=== PATIENT | male | born 1950 | race Caucasian/White ===

== ENCOUNTER 2018-08-04 14:02 | Emergency (ER) | payer OTHER ==
--- NOTE | 2018-08-04 14:56 | RAD REPORT ---
EXAM DESCRIPTION: CT - Head Brain Wo Cont - 08/04/2018 2:48 pm CLINICAL HISTORY: Hypertension, dizziness, weakness COMPARISON: None. TECHNIQUE: Axial 5 mm thick images of the head were obtained without IV contrast. All CT scans are performed using dose optimization technique as appropriate and may include automated exposure control or mA/KV adjustment according to patient size. FINDINGS: No intracranial hemorrhage, mass, edema or shift of mid-line structures. No acute infarcti on changes seen. Mild atrophy and chronic ischemic changes are present. Ventricles are in proportion to the volume loss. Mastoid air cells are clear. No significant paranasal sinus finding. No acute bony findings. IMPRESSION: Negative non-contrast CT head examination for acute finding. Mild atrophy and chronic ischemic change.
[2018-08-04 15:05] LABS: Protime INR 0.92
[2018-08-04 15:15] LABS: Absolute Lymphocytes (CBC) 1.1 K/uL (0.7-4.9); Absolute Monocytes 0.5 K/uL (0.1-1.3); Absolute Neutrophil 4.5 K/uL (1.8-8.0); Basophils % 1.7 % (0-1.3); Eosinophils % 4.9 % (0-4.4); Hematocrit 47.6 % (39.6-49.0); MCH 31.5 pg (27.0-35.0); MCV 91.2 fL (80-100); MPV 8.4 fL (7.6-11.3); Monocytes % 7.9 % (3.3-12.3); RBC Red Blood Cell Count 5.22 M/uL (4.33-5.43)
[2018-08-04 15:16] LABS: Albumin 4.1 g/dL (3.4-5.0); Bilirubin Direct 0.1 mg/dL (0-0.2); Bilirubin Total 0.5 mg/dL (0.2-1.0); Magnesium 2.5 mg/dL (1.8-2.4); Potassium 3.8 mmol/L (3.5-5.1); Protein, Total 7.9 g/dL (6.4-8.2); Troponin (Emerg Dept Use Only) 0.02 ng/mL (0.0-0.045)
--- NOTE | 2018-08-04 15:35 | RAD REPORT ---
EXAM DESCRIPTION: RAD - Chest Single View - 08/04/2018 3:06 pm CLINICAL HISTORY: Chest pain COMPARISON: July 2012 TECHNIQUE: AP portable chest image was obtained 1500 hours . FINDINGS: Lungs are clear. Lung markings are similar to comparison. Heart and vasculature are normal . No measurable pleural effusion and no pneumothorax. No acute bony abnormality seen. No acute aortic findings suspected. IMPRESSION: No acute cardiopulmonary process. No significant interval change.
--- NOTE | 2018-08-04 15:52 | EDPHYS ---
Physician Documentation [facility] Name: Dalton Garsia Age: 67 yrs Sex: Male : 1950 Arrival Date: 08/04/2018 Time: 14:06 Bed 18 Private MD: ANSELMO LUCAS ED Physician Lee Burton HPI: 08/04 15:13 This 67 yrs old Male presents to ER via Ambulatory with complaints of Blood kb Pressure Problem. 15:13 The patient has elevated blood pressure and discovered this at home, with a home kb device. Onset: The symptoms/episode began/occurred this morning. Associated signs and symptoms: Pertinent positives: chest pain, dizziness, Pertinent negatives: dyspnea, headache, lightheadedness, nausea, visual changes, vomiting, weakness. Severity of symptoms: At its worst the blood pressure was 160 mm Hg. The patient has experienced similar episodes in the past. The patient has not recently seen a physician. Pt reports he has had right sided chest pain when he sneezes for the past month, better if he splints the area when he coughs. last week he had flank pain. Today his bp was 160/88. He was ironing and noticed some swelling to his feet so he laid down for a while. The swelling was better after laying down, but he felt a little dizzy so he came to get checked out since he's been having all of these symptoms.. Historical: - Allergies: 14:11 neosporin eye drops; la1 - PMHx: 14:11 Hypertension; la1 - Immunization history:: Adult Immunizations up to date. - Social history:: Smoking status: Patient/guardian denies using tobacco. - Ebola Screening: : No symptoms or risks identified at this time. ROS: 15:13 Constitutional: Negative for fever, chills, and weight loss, ENT: Negative for injury, kb pain, and discharge, Neck: Negative for injury, pain, and swelling, Respiratory: Negative for shortness of breath, cough, wheezing, and pleuritic chest pain, Abdomen/GI: Negative for abdominal pain, nausea, vomiting, diarrhea, and constipation, MS/Extremity: Negative for injury and deformity, Skin: Negative for injury, rash, and discoloration. 15:13 Cardiovascular: Positive for chest pain, edema, Negative for orthopnea, palpitations, paroxysmal nocturnal dyspnea. 15:13 Back: Positive for flank pain. 15:13 Neuro: Positive for dizziness. Exam: 15:13 Constitutional: This is a well developed, well nourished patient who is awake, alert, kb and in no acute distress. Head/Face: Normocephalic, atraumatic. ENT: Nares patent. No nasal discharge, no septal abnormalities noted. Tympanic membranes are normal and external auditory canals are clear. Oropharynx with no redness, swelling, or masses, exudates, or evidence of obstruction, uvula midline. Mucous membranes moist. Neck: Trachea midline, no thyromegaly or masses palpated, and no cervical lymphadenopathy. Supple, full range of motion without nuchal rigidity, or vertebral point tenderness. No Meningismus. Chest/axilla: Normal chest wall appearance and motion. Nontender with no deformity. No lesions are appreciated. Cardiovascular: Regular rate and rhythm with a normal S1 and S2. No gallops, murmurs, or rubs. Normal PMI, no JVD. No pulse deficits. Respiratory: Lungs have equal breath sounds bilaterally, clear to auscultation and percussion. No rales, rhonchi or wheezes noted. No increased work of breathing, no retractions or nasal flaring. Abdomen/GI: Soft, non-tender, with normal bowel sounds. No distension or tympany. No guarding or rebound. No evidence of tenderness throughout. Back: No spinal tenderness. No costovertebral tenderness. Full range of motion. Skin: Warm, dry with normal turgor. Normal color with no rashes, no lesions, and no evidence of cellulitis. MS/ Extremity: Pulses equal, no cyanosis. Neurovascular intact. Full, normal range of motion. Neuro: Awake and alert, GCS 15, oriented to person, place, time, and situation. Cranial nerves II-XII grossly intact. Motor strength 5/5 in all extremities. Sensory grossly intact. Cerebellar exam normal. Normal gait. Vital Signs: 14:11 BP 165 / 93; Pulse 70; Resp 16; Temp 97.7; Pulse Ox 98% on R/A; Weight 68.04 kg; Height la1 5 ft. 7 in. (170.18 cm); 14:26 BP 173 / 89; Pulse 64; Resp 18; Pulse Ox 99% ; em 15:38 BP 142 / 82; Pulse 56; Resp 16; Pulse Ox 99% on R/A; Pain 0/10; em 14:11 Body Mass Index 23.49 (68.04 kg, 170.18 cm) la1 MDM: 14:12 Patient medically screened. kb 15:16 Data reviewed: vital signs, nurses notes. Data interpreted: Pulse oximetry: on room air kb is 98 %. Interpretation: normal. 15:50 Counseling: I had a detailed discussion with the patient and/or guardian regarding: the kb historical points, exam findings, and any diagnostic results supporting the discharge/admit diagnosis, lab results, radiology results, the need for outpatient follow up, a family practitioner, to return to the emergency department if symptoms worsen or persist or if there are any questions or concerns that arise at home. 08/04 14:18 Order name: Basic Metabolic Panel; Complete Time: 15:17 kb 08/04 14:18 Order name: CBC with Diff kb 08/04 14:18 Order name: LFT's; Complete Time: 15:17 kb 08/04 14:18 Order name: Magnesium; Complete Time: 15:17 kb 08/04 14:18 Order name: NT PRO-BNP; Complete Time: 15:17 kb 08/04 14:18 Order name: PT-INR; Complete Time: 15:12 kb 08/04 14:18 Order name: Troponin (emerg Dept Use Only); Complete Time: 15:17 kb 08/04 14:18 Order name: XRAY Chest (1 view); Complete Time: 15:46 kb 08/04 14:18 Order name: EKG; Complete Time: 14:18 kb 08/04 14:18 Order name: Cardiac monitoring; Complete Time: 14:59 kb 08/04 14:18 Order name: EKG - Nurse/Tech; Complete Time: 14:59 kb 08/04 14:18 Order name: CT Head Brain wo Cont; Complete Time: 15:12 kb 08/04 15:25 Order name: CBC Smear Scan EDMS 08/04 15:38 Order name: Urine Dipstick--Ancillary (enter results) bd 08/04 14:18 Order name: IV Saline Lock; Complete Time: 14:59 kb 08/04 14:18 Order name: Labs collected and sent; Complete Time: 14:59 kb 08/04 14:18 Order name: O2 Per Protocol; Complete Time: 14:59 kb 08/04 14:18 Order name: O2 Sat Monitoring; Complete Time: 14:59 kb 08/04 14:18 Order name: Urine Dipstick-Ancillary (obtain specimen); Complete Time: 15:23 kb 08/04 15:46 Order name: Vital Signs; Complete Time: 15:56 kb Administered Medications: No medications were administered Disposition: 08/05 07:40 Co-signature as Attending Physician, Lee Burton MD I agree with the assessment and abril plan of care. Disposition: 08/04/18 15:51 Discharged to Home. Impression: Essential (primary) hypertension. - Condition is Stable. - Discharge Instructions: Hypertension, [id number]. - Medication Reconciliation Form, Thank You Letter, Antibiotic Education, Prescription Opioid Use form. - Follow up: Emergency Department; When: As needed; Reason: Worsening of condition. Follow up: Private Physician; When: 2 - 3 days; Reason: Recheck today's complaints, Continuance of care, Re-evaluation by your physician. Signatures: Dispatcher [employer] Chelsi Delvalle, PINKY-C BELT BACK OPERATOR-Lee Sanchez MD MD cha Munoz, Edgar, BUTTONHOLE TACKER BUTTONHOLE TACKER Bennie Barry, RN RN la1 Corrections: (The following items were deleted from the chart) 08/04 16:17 15:51 08/04/2018 15:51 Discharged to Home. Impression: Essential (primary) em hypertension. Condition is Stable. Forms are Medication Reconciliation Form, Thank You Letter, Antibiotic Education, Prescription Opioid Use. Follow up: Emergency Department; When: As needed; Reason: Worsening of condition. Follow up: Private Physician; When: 2 - 3 days; Reason: Recheck today's complaints, Continuance of care, Re-evaluation by your physician. kb
--- NOTE | 2018-08-04 15:52 | ER ---
Nurse's Notes [facility] Name: Dalton Garsia Age: 67 yrs Sex: Male : 1950 Arrival Date: 08/04/2018 Time: 14:06 Bed 18 Private MD: ANSELMO LUCAS Diagnosis: Essential (primary) hypertension Presentation: 08/04 14:09 Presenting complaint: Patient states: I was doing some ironing at home and got very la1 lightheaded and noticed my ankles were swelling and my face was red, I checked my BP and it was 160/80. Transition of care: patient was not received from another setting of care. Onset of symptoms was August 04, 2018. Risk Assessment: Do you want to hurt yourself or someone else? Patient reports no desire to harm self or others. Initial Sepsis Screen: Does the patient meet any 2 criteria? No. Patient's initial sepsis screen is negative. Does the patient have a suspected source of infection? No. Patient's initial sepsis screen is negative. Care prior to arrival: None. 14:09 Method Of Arrival: Ambulatory la1 14:09 Acuity: GRAY 3 la1 Historical: - Allergies: 14:11 neosporin eye drops; la1 - PMHx: 14:11 Hypertension; la1 - Immunization history:: Adult Immunizations up to date. - Social history:: Smoking status: Patient/guardian denies using tobacco. - Ebola Screening: : No symptoms or risks identified at this time. Screenin:40 Abuse screen: Denies threats or abuse. Nutritional screening: No deficits noted. em Tuberculosis screening: No symptoms or risk factors identified. Fall Risk None identified. Assessment: 14:30 General: Appears in no apparent distress. comfortable, Behavior is calm, cooperative. em Pain: Denies pain. Neuro: Level of Consciousness is awake, alert, obeys commands, Oriented to person, place, time, situation, Reports headache. Cardiovascular: Capillary refill < 3 seconds Patient's skin is warm and dry. Rhythm is sinus rhythm. Respiratory: Airway is patent Respiratory effort is even, unlabored, Respiratory pattern is regular, symmetrical. GI: Abdomen is flat, Patient currently denies nausea, vomiting. : No signs and/or symptoms were reported regarding the genitourinary system. EENT: No signs and/or symptoms were reported regarding the EENT system. Derm: Skin is intact, Skin is pink, warm \T\ dry. Musculoskeletal: Range of motion: intact in all extremities, Swelling present in right leg and left leg. 15:30 Reassessment: Patient appears in no apparent distress at this time. Patient and/or em family updated on plan of care and expected duration. Pain level reassessed. Patient is alert, oriented x 3, equal unlabored respirations, skin warm/dry/pink. 16:10 Reassessment: Patient appears in no apparent distress at this time. Patient and/or em family updated on plan of care and expected duration. Pain level reassessed. Patient is alert, oriented x 3, equal unlabored respirations, skin warm/dry/pink. Patient denies pain at this time. Patient states feeling better. Patient states symptoms have improved. 16:20 Reassessment: I agree with previous assessment. hb Vital Signs: 14:11 BP 165 / 93; Pulse 70; Resp 16; Temp 97.7; Pulse Ox 98% on R/A; Weight 68.04 kg; Height la1 5 ft. 7 in. (170.18 cm); 14:26 BP 173 / 89; Pulse 64; Resp 18; Pulse Ox 99% ; em 15:38 BP 142 / 82; Pulse 56; Resp 16; Pulse Ox 99% on R/A; Pain 0/10; em 14:11 Body Mass Index 23.49 (68.04 kg, 170.18 cm) la1 ED Course: 14:06 Patient arrived in ED. sb2 14:06 ANSELMO LUCAS is Private Physician. sb2 14:10 Triage completed. la1 14:11 Arm band placed on right wrist. la1 14:12 Chelsi Gill FNP-C [facility]. kb 14:12 Lee Burton MD is Attending Physician. kb 14:17 Juan Brand LVN is Primary Nurse. em 14:40 Patient has correct armband on for positive identification. Placed in gown. Bed in low em position. Call light in reach. drafting instructor on. Pulse ox on. NIBP on. 14:40 Initial lab(s) drawn, by me, sent to lab. Inserted saline lock: 20 gauge in right em forearm, using aseptic technique. Blood collected. 14:48 CT completed. Patient moved to CT via wheelchair. Patient moved back from CT. cw1 14:49 CT Head Brain wo Cont In Process Unspecified. EDMS 15:06 X-ray completed. Portable x-ray completed in exam room. Patient tolerated procedure la2 well. 15:07 XRAY Chest (1 view) In Process Unspecified. EDMS 16:17 No provider procedures requiring assistance completed. IV discontinued, intact, em bleeding controlled, No redness/swelling at site. Pressure dressing applied. Administered Medications: No medications were administered Outcome: 15:51 Discharge ordered by . kb 16:17 Discharged to home ambulatory. em 16:17 Condition: good 16:17 Discharge instructions given to patient, Instructed on discharge instructions, follow up and referral plans. Demonstrated understanding of instructions, follow-up care. 16:17 Patient left the ED. em Signatures: Dispatcher [employer] EDChelsi Chapin, STRAPPER OPERATOR-C STRAPPER OPERATOR-CkJuan Smith, DEICER KIT ASSEMBLER DEICER KIT ASSEMBLER em Arielle Maria cw1 Bennie Emery RN RN la1 Kyra Briceño RN RN Sophy Giles la2 Indira Bustillo sb2
[2018-08-04 16:29] LABS: Blood Morphology Comment NOT SEEN (NOT SEEN); Platelet Estimate ADEQ; Urine White Blood Cell Casts OK
[2018-08-04 18:43] VITALS: TEMP 97.7
[2018-08-04 18:44] VITALS: O2SAT 99
[2018-08-04 18:46] VITALS: BP 142/82
[2018-08-04 19:34] LABS: Urine Blood NEGATIVE (NEG); Urine Glucose NEGATIVE (NEG); Urine Protein NEGATIVE (NEG)
--- NOTE | 2018-08-05 07:41 | EKG ---
Test Date: 2018-08-04 Test Time: 14:33:29 Outbound Sales Executive: WING MEASUREMENT RESULTS: Intervals: Rate: 63 MD: 184 QRSD: 100 QT: 408 QTc: 417 [place]: P: 69 MD: 184 QRS: -85 T: 48 INTERPRETIVE STATEMENTS: Normal sinus rhythm Incomplete right bundle branch block Left anterior fascicular block Possible Anterior infarct, age undetermined Abnormal ECG Compared to ECG 11/07/2013 08:19:42 Myocardial infarct finding now present Sinus bradycardia no longer present Electronically Signed On 08-05-18 07:39:11 PIANO ASSEMBLER by Johnny King
== END 2018-08-04 16:17 | disposition home or self-care (01) ==
LOC: ER 14:02
DX: I10 Essential (primary) hypertension (principal); I45.2 Bifascicular block; I44.4 Left anterior fascicular block; R94.31 Abnormal electrocardiogram [ECG] [EKG]
CPT/HCPCS: 36415; 70450; 71045; 80048; 80076; 81003; 83735; 83880; 84484; 85025; 85610; 93005; 99285

== ENCOUNTER 2019-08-26 07:47 | Emergency (ER) | payer OTHER ==
--- OUTSIDE RECORDS SUMMARY | 2019-08-26 07:49 | XMS REPORT ---
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
--- OUTSIDE RECORDS SUMMARY | 2019-08-26 07:49 | XMS REPORT ---
:1950 Author Organization eClinicalWorks Care Team Providers Name Role Phone Melia Sharee Provider Role Unavailable Allergies, Adverse Reactions, Alerts Substance Reaction Event Type Neosporin Gtts. 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 Active Problem Essential (primary) hypertension I10 Active Problem Screening for prostate cancer Z12.5 Active Assessment Screening for prostate cancer Z12.5 Active Assessment Encounter for immunization Z23 Active Assessment Essential (primary) hypertension I10 Active Medications Medication Code Code Instructions Start End Status Dosage System Date Date Ziac [facility] [place] 27411291543 10-6.25 MG Active 1 tablet Orally Once a day Aspirin Adult [facility] [place] 48703500357 81 MG Orally Active 1 tablet Low Dose Once a day Ocuvite [facility] [place] 0 Active not defined Fish Oil [facility] [place] [address]-32 Orally Twice a Active 1 capsule day Norvasc [facility] [place] 49859599917 5 MG Orally Active 1 tablet Once a day Results No Known Results Immunizations Vaccine Administration Date Pneumovax February 18, 2019 Summary Purpose eClinicalWorks Submission
[2019-08-26 11:47] LABS: ALT/SGPT 39 U/L (12-78); AST/SGOT 27 U/L (15-37); Albumin 3.8 g/dL (3.4-5.0); Alkaline Phosphatase 78 U/L (45-117); BUN Blood Urea Nitrogen 27 mg/dL (7-18); Bicarbonate 28 mmol/L (21-32); Bilirubin Direct 0.2 mg/dL (0-0.2); Bilirubin Total 0.7 mg/dL (0.2-1.0); Glucose Level 97 mg/dL (74-106); Magnesium 2.4 mg/dL (1.8-2.4); NT PRO-BNP 83 pg/mL (<125); Potassium 3.6 mmol/L (3.5-5.1); Protein, Total 7.1 g/dL (6.4-8.2); Sodium Level 143 mmol/L (136-145); Troponin (Emerg Dept Use Only) < 0.02 ng/mL (0.0-0.045)
[2019-08-26 11:55] LABS: Protime INR 0.95
[2019-08-26 11:56] LABS: Hematocrit 47.5 % (39.6-49.0); RBC Red Blood Cell Count 5.23 M/uL (4.33-5.43)
[2019-08-26 11:57] LABS: Basophils % 1.2 % (0-1.3); Lymphocytes % 17.9 % (15.3-44.8)
--- NOTE | 2019-08-26 12:06 | RAD REPORT ---
EXAM DESCRIPTION: CT - Head Brain Wo Cont - 08/26/2019 11:53 am CLINICAL HISTORY: Left leg weakness COMPARISON: None. TECHNIQUE: Axial 5 mm thick images of the head were obtained without IV contrast. All CT scans are performed using dose optimization technique as appropriate and may include automated exposure control or mA/KV adjustment according to patient size. FINDINGS: No intracranial hemorrhage, mass, edema or shift of mid-line structures. No acute cortical based infarction identified. No cortical edema or sulcal effacement. Patchy areas of decreased atten uation are present in the cerebral white matter. These areas are most likely chronic ischemic change. Chronic ischemic change can mask nonhemorrhagic acute CVA. Atrophy is minimal. No abnormal extra-axi al fluid collections. Ventricles are normal. Mastoid air cells and visualized portions of the paranasal sinuses are clear. No acute bony findings. Technical difficulties with endoscope technician system precluded generating report at the time of the study . Findings were telephoned to the referring clinician 8:57 a.m.. IMPRESSION: No hemorrhage or acute intracranial finding. Patchy white matter chronic ischemic changes are present. This could potentially mask nonhemorrhagic acute CVA.
--- NOTE | 2019-08-26 13:14 | RAD REPORT ---
EXAM DESCRIPTION: RAD - Chest Single View - 08/26/2019 1:08 pm CLINICAL HISTORY: PALPITATIONS Chest pain. COMPARISON: No comparisons FINDINGS: Portable technique limits examination quality. The lungs are grossly clear. The heart is normal in size. No displaced fractures. IMPRESSION: No acute intrathoracic process suspected.
--- NOTE | 2019-08-26 13:20 | EKG ---
Test Date: 2019-08-26 Test Time: 09:07:09 Canine Service Instructor Trainer: SPIKE MEASUREMENT RESULTS: Intervals: Rate: 57 SD: 176 QRSD: 100 QT: 424 QTc: 412 [place]: P: 61 SD: 176 QRS: -84 T: 41 INTERPRETIVE STATEMENTS: Sinus bradycardia with premature atrial complexes with aberrant conduction Pulmonary disease pattern Incomplete right bundle branch block Left anterior fascicular block Abnormal ECG Compared to ECG 08/04/2018 14:33:29 Atrial premature complex(es) now present Aberrant conduction of supraventricular beat(s) now present Sinus rhythm no longer present Myocardial infarct finding no longer present Electronically Signed On 08-26-19 13:19:52 MATERIAL ASSISTANT by Jarod Mathews
--- NOTE | 2019-08-26 15:01 | ER ---
Nurse's Notes [facility] Name: Dalton Garsia Age: 68 yrs Sex: Male : 1950 Arrival Date: 08/26/2019 Time: 07:48 Bed External Waiting Private MD: Diagnosis: Palpitations Presentation: 08/26 07:53 Presenting complaint: Patient states: "I was working on a boat the other day and I aa5 started having palpitations and I saw my doctor but they couldn't find anything wrong but today I woke up feeling bad". Pt states "my left leg started feeling weak when I woke up this morning and also my chest feels weird". Transition of care: patient was not received from another setting of care. Onset of symptoms was August 2019. Risk Assessment: Do you want to hurt yourself or someone else? Patient reports no desire to harm self or others. Initial Sepsis Screen: Does the patient meet any 2 criteria? No. Patient's initial sepsis screen is negative. Does the patient have a suspected source of infection? No. Patient's initial sepsis screen is negative. Care prior to arrival: None. 07:53 Acuity: GRAY 2 aa5 07:53 Method Of Arrival: Ambulatory aa5 Historical: - Allergies: 07:56 neosporin eye drops; aa5 - PMHx: 07:56 Hypertension; Hyperlipidemia; aa5 - PSHx: 07:56 Hernia repair; aa5 - Immunization history:: Flu vaccine is up to date. - Social history:: Smoking status: Patient/guardian denies using tobacco, Patient/guardian denies using alcohol, street drugs, The patient lives with family. - Ebola Screening: : No symptoms or risks identified at this time. - Family history:: not pertinent. Screenin:00 Abuse screen: Denies threats or abuse. Denies injuries from another. Nutritional ph screening: No deficits noted. Tuberculosis screening: No symptoms or risk factors identified. Fall Risk None identified. Assessment: 08:30 General: Appears in no apparent distress. comfortable, slender, well groomed, Behavior ph is calm, cooperative, appropriate for age, Denies fever, feeling ill. Pain: Complains of pain in forehead. Neuro: Level of Consciousness is awake, alert, obeys commands, Oriented to person, place, time, situation, Reports headache frontal area. Cardiovascular: Reports lightheadedness, palpitations, Denies chest pain, fatigue, nausea, shortness of breath, syncope, Capillary refill < 3 seconds in bilateral fingers Patient's skin is warm and dry. Rhythm is sinus bradycardia. Respiratory: Airway is patent Respiratory effort is even, unlabored, Respiratory pattern is regular, symmetrical, Denies cough, shortness of breath. GI: No signs and/or symptoms were reported involving the gastrointestinal system. EENT: Reports nasal congestion. Derm: Skin is intact, is healthy with good turgor, Skin is pink, warm \\T\\ dry. Musculoskeletal: Circulation, motion, and sensation intact. Range of motion: intact in all extremities. 09:30 Reassessment: Patient appears in no apparent distress at this time. Patient and/or ph family updated on plan of care and expected duration. Pain level reassessed. Patient is alert, oriented x 3, equal unlabored respirations, skin warm/dry/pink. 10:15 Reassessment: Pt left ED at 1015. ph Vital Signs: 07:56 BP 175 / 95; Pulse 63; Resp 16 S; Temp 97.6(TE); Pulse Ox 98% on R/A; Weight 68.04 kg aa5 (R); Height 5 ft. 7 in. (170.18 cm) (R); Pain 0/10; 09:00 BP 152 / 78; Pulse 58; Resp 18; Pulse Ox 98% on R/A; ph 10:00 BP 146 / 80; Pulse 56; Resp 16; Temp 97.5; Pulse Ox 99% on R/A; ph 07:56 Body Mass Index 23.49 (68.04 kg, 170.18 cm) aa5 ED Course: 07:48 Patient arrived in ED. as 07:55 Triage completed. aa5 07:57 Pamela Pantoja MD is Attending Physician. ma2 08:01 Carleen Huff RN is Primary Nurse. ph 09:00 Arm band placed on. ph 09:00 Patient has correct armband on for positive identification. Placed in gown. Bed in low ph position. Call light in reach. Side rails up X2. compliance monitor on. Pulse ox on. NIBP on. Door closed. Noise minimized. Warm blanket given. 10:15 No provider procedures requiring assistance completed. IV discontinued, intact, ph bleeding controlled, No redness/swelling at site. Pressure dressing applied. Administered Medications: No medications were administered Outcome: 09:50 Discharge ordered by . zenaida 10:21 Discharged to home ambulatory. ph 10:21 Condition: good 10:21 Discharge instructions given to patient, Instructed on discharge instructions, follow up and referral plans. Demonstrated understanding of instructions, follow-up care. 11:23 Patient left the ED. Signatures: Mary Jane Rojas Audri RN RN aa5 Prema Mesa RN RN Carleen Huff RN RN Pamela Pantoja MD MD ma2
--- NOTE | 2019-08-26 15:02 | EDPHYS ---
Physician Documentation [facility] Name: Dalton Garsia Age: 68 yrs Sex: Male : 1950 Arrival Date: 08/26/2019 Time: 07:48 Bed External Waiting Private MD: ED Physician Pamela Pantoja HPI: 08/26 09:47 This 68 yrs old Male presents to ER via Ambulatory with complaints of ma2 Headache, Weakness - L Foot, Chest Discomfort. 09:47 The patient complains of pain to the forehead. Onset: The symptoms/episode ma2 began/occurred gradually, 1 day(s) ago. Associated signs and symptoms: Pertinent negatives: dizziness, paresthesias, sinus congestion, weakness. Severity of symptoms: At its worst the pain was very mild, in the emergency department the pain is unchanged. The patient has not experienced similar symptoms in the past. Historical: - Allergies: 07:56 neosporin eye drops; aa5 - PMHx: 07:56 Hypertension; Hyperlipidemia; aa5 - PSHx: 07:56 Hernia repair; aa5 - Immunization history:: Flu vaccine is up to date. - Social history:: Smoking status: Patient/guardian denies using tobacco, Patient/guardian denies using alcohol, street drugs, The patient lives with family. - Ebola Screening: : No symptoms or risks identified at this time. - Family history:: not pertinent. ROS: 09:47 Constitutional: Negative for fever, chills, and weight loss. ma2 09:47 All other systems are negative. Exam: 09:47 Constitutional: This is a well developed, well nourished patient who is awake, alert, ma2 and in no acute distress. Head/Face: Normocephalic, atraumatic. Eyes: Pupils equal round and reactive to light, extra-ocular motions intact. Lids and lashes normal. Conjunctiva and sclera are non-icteric and not injected. Cornea within normal limits. Periorbital areas with no swelling, redness, or edema. ENT: Nares patent. No nasal discharge, no septal abnormalities noted. Tympanic membranes are normal and external auditory canals are clear. Oropharynx with no redness, swelling, or masses, exudates, or evidence of obstruction, uvula midline. Mucous membranes moist. Neck: Trachea midline, no thyromegaly or masses palpated, and no cervical lymphadenopathy. Supple, full range of motion without nuchal rigidity, or vertebral point tenderness. No Meningismus. Chest/axilla: Normal chest wall appearance and motion. Nontender with no deformity. No lesions are appreciated. Cardiovascular: Regular rate and rhythm with a normal S1 and S2. No gallops, murmurs, or rubs. Normal PMI, no JVD. No pulse deficits. Respiratory: Lungs have equal breath sounds bilaterally, clear to auscultation and percussion. No rales, rhonchi or wheezes noted. No increased work of breathing, no retractions or nasal flaring. Abdomen/GI: Soft, non-tender, with normal bowel sounds. No distension or tympany. No guarding or rebound. No evidence of tenderness throughout. MS/ Extremity: Pulses equal, no cyanosis. Neurovascular intact. Full, normal range of motion. Neuro: Awake and alert, GCS 15, oriented to person, place, time, and situation. Cranial nerves II-XII grossly intact. Motor strength 5/5 in all extremities. Sensory grossly intact. Cerebellar exam normal. Normal gait. Vital Signs: 07:56 BP 175 / 95; Pulse 63; Resp 16 S; Temp 97.6(TE); Pulse Ox 98% on R/A; Weight 68.04 kg aa5 (R); Height 5 ft. 7 in. (170.18 cm) (R); Pain 0/10; 09:00 BP 152 / 78; Pulse 58; Resp 18; Pulse Ox 98% on R/A; ph 10:00 BP 146 / 80; Pulse 56; Resp 16; Temp 97.5; Pulse Ox 99% on R/A; ph 07:56 Body Mass Index 23.49 (68.04 kg, 170.18 cm) aa5 MDM: 07:57 Patient medically screened. ma2 09:47 Differential diagnosis: otitis, tension headache, uremia. Data reviewed: vital signs, ma2 nurses notes. Counseling: I had a detailed discussion with the patient and/or guardian regarding: the historical points, exam findings, and any diagnostic results supporting the discharge/admit diagnosis, the presence of at least one elevated blood pressure reading (>120/80) during this emergency department visit, the need for outpatient follow up. ED course: patient has unspecific symptoms, got verbal report from radiologist that ct head is wnl, lab all wnl, ekg shows pvc but no arrythmias, [employer] is down and got all results verbally . 08/26 08:22 Order name: Basic Metabolic Panel [facility] 08/26 08:22 Order name: CBC with Diff [facility] 08/26 08:22 Order name: LFT's [facility] 08/26 08:22 Order name: Magnesium [facility] 08/26 08:22 Order name: NT PRO-BNP [facility] 08/26 08:22 Order name: PT-INR [facility] 08/26 08:22 Order name: Troponin (emerg Dept Use Only) [facility] 08/26 08:22 Order name: XRAY Chest (1 view) [facility] 08/26 08:22 Order name: EKG; Complete Time: 08:23 [facility] 08/26 08:22 Order name: Cardiac monitoring; Complete Time: 12:53 [facility] 08/26 08:22 Order name: EKG - Nurse/Tech; Complete Time: 12:53 [facility] 08/26 08:22 Order name: CT Head Brain wo Cont [facility] 08/26 08:22 Order name: TSH [facility] 08/26 08:22 Order name: T4 Free [facility] 08/26 08:22 Order name: IV Saline Lock; Complete Time: 12:53 [facility] 08/26 08:22 Order name: Labs collected and sent; Complete Time: 12:53 [facility] 08/26 08:22 Order name: O2 Per Protocol; Complete Time: 12:53 [facility] 08/26 08:22 Order name: O2 Sat Monitoring; Complete Time: 12:53 [facility] Administered Medications: No medications were administered Disposition: 08/26/19 09:50 Discharged to Home. Impression: Palpitations. - Condition is Stable. - Discharge Instructions: Palpitations. - Medication Reconciliation Form, Thank You Letter, Antibiotic Education, Prescription Opioid Use form. - Follow up: Private Physician; When: Tomorrow; Reason: Continuance of care. Signatures: Dispatcher [employer] Namita Olson RN RN aa5 Prema Mesa RN RN ss Pamela Pantoja MD MD ma2 Corrections: (The following items were deleted from the chart) 11:23 09:50 08/26/2019 09:50 Discharged to Home. Impression: Palpitations. Condition is ss Stable. Forms are Medication Reconciliation Form, Thank You Letter, Antibiotic Education, Prescription Opioid Use. Follow up: Private Physician; When: Tomorrow; Reason: Continuance of care. ma2
[2019-08-26 15:45] VITALS: BP 146/80; TEMP 97.5; O2SAT 99
== END 2019-08-26 11:23 | disposition home or self-care (01) ==
LOC: ER 07:47
DX: R00.2 Palpitations (principal); I10 Essential (primary) hypertension
CPT/HCPCS: 36415; 70450; 71045; 80048; 80076; 83735; 83880; 84439; 84443; 84484; 85025; 85610; 93005; 99284